=== PATIENT | male | born 1950 | race Caucasian/White ===

== ENCOUNTER 2018-05-22 15:55 | Emergency (ER) | payer BC, MEDICARE, OTHER ==
[2018-05-22 16:36] VITALS: BP 146/75
--- NOTE | 2018-05-22 16:51 | UC ---
Abdominal Pain Male HPI - HPI Summary HPI Summary: The patient is a 67-year-old male had the onset of left flank pain about 12:30 today. The onset was acute and the pain was severe. No nausea or vomiting during this episode. Eyes any diaphoresis. Stopped acutely while he was here. While he had the pain he had the urge to both defecate and urinate but could not. Eyes any history of kidney stone. He denies any history of diverticulitis. Has had no surgeries on his abdomen. He has no fever or chills. Denies any UTI symptoms. - History of Current Complaint Chief Complaint: UCAbdominalPain Stated Complaint: ABDOMINAL PAIN Time Seen by Provider: 05/22/18 16:50 Hx Obtained From: Patient Onset/Duration: Sudden Onset Timing: Constant Severity Initially: Severe Severity Currently: Mild Pain Intensity: 0 Pain Scale Used: 0-10 Numeric Location: Other - left flank Radiates to: Back Character: Sharp Aggravating Factor(s): Nothing Alleviating Factor(s): Spontaneous Resolution Associated Signs And Symptoms: Positive: Negative - Allergies/Home Medications Allergies/Adverse Reactions: Allergies Allergy/AdvReac Type Severity Reaction Status Date / Time No Known Allergies Allergy Verified 05/22/18 16:36 PMH/Surg Hx/FS Hx/Imm Hx Previously Healthy: Yes - Surgical History Surgical History: Yes Surgery Procedure, Year, and Place: T & A - Family History Known Family History: Positive: Hypertension, Other - GB disease - Social History Alcohol Use: Daily Substance Use Type: None Smoking Status (MU): Never Smoked Tobacco Review of Systems Constitutional: Negative Skin: Negative Eyes: Negative ENT: Negative Respiratory: Negative Cardiovascular: Negative Gastrointestinal: Abdominal Pain - resolved Genitourinary: Negative Motor: Negative Neurovascular: Negative Musculoskeletal: Negative Neurological: Negative Psychological: Negative Is Patient Immunocompromised?: No All Other Systems Reviewed And Are Negative: Yes Physical Exam Triage Information Reviewed: Yes Appearance: Well-Appearing, No Pain Distress, Well-Nourished Vital Signs: Initial Vital Signs Temp 98.7 F 05/22/18 16:27 Pulse 67 05/22/18 16:27 Resp 16 05/22/18 16:27 BP 146/75 05/22/18 16:27 Pulse Ox 99 05/22/18 16:27 Vital Signs Reviewed: Yes Eyes: Positive: Conjunctiva Clear ENT: Positive: Pharynx normal. Negative: Nasal drainage, TMs normal, Muffled voice, Dental tenderness Neck: Positive: Supple, Nontender, No Lymphadenopathy Respiratory: Positive: Lungs clear, Normal breath sounds, No respiratory distress, No accessory muscle use Cardiovascular: Positive: RRR, No Murmur Abdomen Description: Positive: Nontender, CVA Tenderness (L) - very slight Bowel Sounds: Positive: Present Musculoskeletal: Positive: Strength Intact, ROM Intact, No Edema Neurological: Positive: Alert Psychological Exam: Normal Skin Exam: Normal Diagnostics - Laboratory Diagnostic Studies Completed/Ordered: +++ RBCs Abd Pain Male Course/Dx - Differential Dx/Clinical Impression Provider Diagnoses: Left flank pain resolved. microscopic hematuria. ? kidney stone Discharge - Sign-Out/Discharge Documenting (check all that apply): Patient Departure - Discharge Plan Condition: Stable Disposition: HOME Patient Education Materials: Kidney Stones (ED) Referrals: Luis Myles MD [Primary Care Provider] - 1 Day Additional Instructions: I suspect your symptoms were due to a kidney stone It may have passed If symptoms recur or new symptoms develop get rechecked DANIEL fluids - Billing Disposition and Condition Condition: STABLE Disposition: Home
== END 2018-05-22 17:54 | disposition home or self-care (01) ==
LOC: UCCORT 15:55
DX: R10.9 Unspecified abdominal pain (principal); R31.9 Hematuria, unspecified
CPT/HCPCS: 81003; 99211; G0463